=== PATIENT | male | born 1970 | race Two or more races ===

== ENCOUNTER 2023-11-09 20:04 | Emergency (ER) | payer OTHER ==
[~2023-11-09] VITALS: Ht 152.4 cm; Wt 97.5 kg
[2023-11-09] MEDS ORDERED: GABAPENTIN100 M2 PO (20:16)
[2023-11-09] MEDS ORDERED: LIPITOR40 MG PO (20:17)
[2023-11-09] MEDS ORDERED: AMBIEN10 MG (20:17)
[2023-11-09] MEDS ORDERED: CEFTRIAXONE SODIUM 1,000 MG VIAL IM STA (20:49)
== END 2023-11-09 21:01 | disposition home or self-care (01) ==
LOC: ER 20:05
DX: L02.91 Cutaneous abscess, unspecified (principal); Z88.6 Allergy status to analgesic agent

== ENCOUNTER 2024-05-11 06:00 | Day surgery (SDC) | payer OTHER ==
[2024-05-06 10:11] VITALS: BP 131/84
[2024-05-06 10:12] LABS: HEMATOCRIT 43.8 % (39.0-48.0); HEMOGLOBIN 15.3 g/dL (13-16.00); MEAN CELL VOLUME 91.7 fL (80.0-100.00); MEAN CORPUSCULAR HEMOGLOBIN 32.2 pg (27.00-32.0); MEAN CORPUSCULAR HGB CONC 35.1 g/dl (32.0-36.0); PLATELET COUNT 184 K/uL (150-450); RED BLOOD COUNT 4.77 M/uL (4.00-6.00); RED CELL DISTRIBUTION WIDTH 13.9 % (11.5-14.5)
[2024-05-06 10:14] LABS: PH,URINE 5.5 (5.0-8.0); URINE APPEARANCE Clear; URINE BILIRRUBIN Negative (NEGATIVE); URINE BLOOD Negative; URINE COLOR Yellow; URINE GLUCOSE Negative (NEGATIVE); URINE KETONE Trace (NEGATIVE); URINE LEUKOCYTE Negative; URINE NITRATE Negative; URINE PROTEIN Negative (NEGATIVE); URINE UROBILINOGEN 0.2 E.U./dl
[2024-05-06 10:17] LABS: URINE BACTERIA 6.2 uL (0.0-1933); URINE RBC 3.8 uL (0.0-20.8); URINE WBC 11.2 uL (0.0-23.2)
[2024-05-06 10:40] LABS: INR 1.07; PARTIAL THROMBOPLASTIN TIME 29.9 SECONDS (22.0-34.0); PROTHROMBIN TIME 11.6 SECONDS (9.0-11.5)
[2024-05-06 11:08] LABS: URINE CAST 0.15 uL (0.0-1.40); URINE EPITHELIAL CELLS 0.7 uL (0.0-38.8)
[2024-05-06 11:25] LABS: CALCIUM 10.1 mg/dL (8.5-10.1); CREATININE SERUM 1.02 mg/dL (0.70-1.30); POTASSIUM 3.83 mEq/L (3.5-5.1)
[~2024-05-11 06:00] MED LIST: AMBIEN10 MG; CYMBALTA60 MG PO; GABAPENTIN100 M2 PO; LIPITOR40 MG PO; ZOMIG5 MG PO
[2024-05-11] MEDS ORDERED: BUPIVACAINE HCL 30 ML VIAL IJ ONE (12:30)
[2024-05-11] MEDS ORDERED: METRONIDAZOLE/SODIUM CHLORIDE 500 MG/100 ML PIGGYBACK IV ONE (12:30)
[2024-05-11] MEDS ORDERED: ENOXAPARIN SODIUM 40 MG/0.4 ML SYRINGE SUBCUTANEO ONE (12:30)
[2024-05-11] MEDS ORDERED: CEFTRIAXONE SODIUM 2,000 MG VIAL IV ONE (12:30)
[2024-05-11] MEDS ORDERED: NEURONTIN300 MG PO (14:46)
[2024-05-11] MEDS ORDERED: PERCOCET 5-3251 EACH PO (14:46)
[2024-05-11] MEDS ORDERED: COLACE100 MG PO (14:47)
[2024-05-11] MEDS ORDERED: MORPHINE SULFATE 2 MG/ML CARTRIDGE IV ONE (15:55)
== END 2024-05-11 17:25 | disposition home or self-care (01) ==
LOC: CIR.AMB 06:00
PROVIDERS: ATTEND Surgery
DX: K42.0 Umbilical hernia with obstruction, without gangrene (principal); Z88.6 Allergy status to analgesic agent; E78.5 Hyperlipidemia, unspecified; G43.909 Migraine, unspecified, not intractable, without status migrainosus
CPT/HCPCS: 49594; C1781